=== PATIENT | male | born 2000 | race Caucasian/White ===

== ENCOUNTER 2021-05-28 14:55 | Emergency (ER) | payer OTHER ==
[~2021-05-28] VITALS: Ht 177.8 cm; Wt 68.0 kg
--- NOTE | 2021-05-28 15:20 | NUR ---
Patient ambulatory, alert and oriented x4. Patient complaints of sharp pain 7/10 on left rib cage during deep inhalation. Vitals stable.
--- NOTE | 2021-05-28 15:21 | NUR ---
at bedside, medicak screening in process.
[2021-05-28 15:30] VITALS: BP 101/80
--- NOTE | 2021-05-28 15:33 | NUR ---
Patient discharged to home in stable condition. Written and verbal after care instructions given. Patient verbalizes understanding of instructions. Stressed follow up or return to ER for worsening s/s.
== END 2021-05-28 15:30 | disposition home or self-care (01) ==
LOC: ER 14:57
DX: R07.81 Pleurodynia (principal); R00.1 Bradycardia, unspecified; F17.210 Nicotine dependence, cigarettes, uncomplicated; Z86.16 Personal history of COVID-19
CPT/HCPCS: 71045; 93005; A4663

== ENCOUNTER 2021-11-23 09:12 | Emergency (ER) | payer OTHER ==
[~2021-11-23] VITALS: Ht 175.3 cm; Wt 68.0 kg
[2021-11-23 10:09] LABS: HEMATOCRIT 47.3 % (36.7-47.1); MEAN CORPUSCULAR HEMOGLOBIN 30.9 uug (23.8-33.4); PLATELET COUNT (AUTO) 351 K/uL (152-348)
[2021-11-23] MEDS ORDERED: MECLIZINE HCL 25 MG TABLET PO ONE (10:15)
[2021-11-23 10:30] LABS: CREATININE 0.8 mg/dL (0.6-1.3); POTASSIUM 4.2 mmol/L (3.5-5.1)
[2021-11-23] MEDS ORDERED: MECLIZINE HCL 25 MG TABLET ONE (10:32)
[2021-11-23 10:35] LABS: BILIRUBIN,DIRECT 0.1 mg/dL (0.0-0.2); BILIRUBIN,TOTAL 0.5 mg/dL (0.2-1.0); TOTAL PROTEIN, SERUM 8.2 g/dL (6.4-8.2)
[2021-11-23] MEDS ORDERED: MECL-225 PO (10:56)
--- NOTE | 2021-11-23 11:04 | NUR ---
Patient discharged to home in stable condition with brisk steady gait. Written and verbal after care instructions given. Patient verbalized understanding and compliance of instructions. Stressed follow up with neurologist, ENT and primary doctor or return to ER for worsening s/s.
[2021-11-23 11:09] VITALS: BP 110/66
== END 2021-11-23 11:04 | disposition home or self-care (01) ==
LOC: ER 09:12
DX: H81.399 Other peripheral vertigo, unspecified ear (principal); Z86.16 Personal history of COVID-19; R94.31 Abnormal electrocardiogram [ECG] [EKG]
CPT/HCPCS: 36415; 85025; 93005; A4663; J8597

== ENCOUNTER 2022-07-03 11:08 | Emergency (ER) | payer OTHER ==
[~2022-07-03] VITALS: Ht 172.7 cm; Wt 72.6 kg
[~2022-07-03 11:08] MED LIST: MECL-225 PO
--- NOTE | 2022-07-03 11:35 | NUR ---
Dr Chau seen and examined the pt.
[2022-07-03] MEDS ORDERED: CLOT15CR27 TP (11:45)
[2022-07-03 11:50] VITALS: BP 112/63; O2SAT 98
== END 2022-07-03 11:50 | disposition home or self-care (01) ==
LOC: ER 11:08
DX: R21 Rash and other nonspecific skin eruption (principal); F17.210 Nicotine dependence, cigarettes, uncomplicated; Z79.899 Other long term (current) drug therapy
CPT/HCPCS: A4663